=== PATIENT | female | born 1930 | race Caucasian/White ===

== ENCOUNTER 2017-04-12 10:20 | Emergency (ER) | payer OTHER ==
[~2017-04-12] VITALS: Ht 165.1 cm; Wt 66.9 kg
[2017-04-12 10:26] VITALS: BP 217/89; PULSE 75; RESP 18; TEMP 97.5
[2017-04-12] MEDS ORDERED: [UNRECOGNIZED DRUG - REMARK] (10:37)
[2017-04-12] MEDS ORDERED: ZITHTAB PO (10:59)
[2017-04-12] MEDS ORDERED: TRIAM.1%T TOPICAL (10:59)
--- NOTE | 2017-04-12 10:59 | PD ---
HPI Chief Complaint: Skin Problem Time Seen by Provider: 10:50 Travel History International Travel<30 days: No Contact w/Intl Traveler<30days: No Traveled to known affect area: No History of Present Illness HPI Patient presents with concerns of a sore throat and a rash about her neck for 2 weeks. States that her doctor gave her a steroid taper without resolution of her symptoms. Denies nausea vomiting diarrhea or fever. Denies any chest pain shortness of breath urinary or bowel symptoms. PFSH Past Medical History Dementia: Yes Hypertension: Yes ?: Not Social History Alcohol Use: No Tobacco Use: No Substance Use: No Allergies-Medications (Allergen,Severity, Reaction): Coded Allergies: Penicillins (Verified Allergy, Severe, Nausea/Vomiting, 04/12/17) Sulfa (Sulfonamide Antibiotics) (Verified Allergy, Severe, Nausea/Vomiting , 04/12/17) ciprofloxacin (Verified Allergy, Severe, Nausea/Vomiting, 04/12/17) Reported Meds & Prescriptions Reported Meds & Active Scripts Active Reported [?Antihypertensive] Review of Systems General / Constitutional: No: Fever Eyes: No: Visual changes HENT: Positive: Sore Throat, No: Headaches Cardiovascular: No: Chest Pain or Discomfort Respiratory: No: Shortness of Breath Gastrointestinal: No: Abdominal Pain Genitourinary: No: Dysuria Musculoskeletal: No: Pain Skin: Positive Rash Neurologic: No: Weakness Psychiatric: No: Depression Endocrine: No: Polydipsia Hematologic/Lymphatic: No: Easy Bruising Physical Exam Narrative GENERAL: Well-nourished, well-developed patient. SKIN: Focused skin assessment warm/dry. HEAD: Normocephalic. Throat: Erythematous mild adenopathy no exudate No rashes appreciated EYES: No scleral icterus. No injection or drainage. NECK: Supple, trachea midline. No JVD or lymphadenopathy. CARDIOVASCULAR: Regular rate and rhythm without murmurs, gallops, or rubs. RESPIRATORY: Breath sounds equal bilaterally. No accessory muscle use. GASTROINTESTINAL: Abdomen soft, non-tender, nondistended. MUSCULOSKELETAL: No cyanosis, or edema. BACK: Nontender without obvious deformity. No CVA tenderness. Data Data Last Documented VS Vital Signs Date Time Temp Pulse Resp B/P (MAP) Pulse Ox O2 Delivery O2 Flow Rate FiO2 04/12/17 10:26 97.5 75 18 217/89 (131) MDM Medical Decision Making Medical Screen Exam Complete: Yes Emergency Medical Condition: Yes Differential Diagnosis Pharyngitis, laryngitis, strep throat Narrative Course Assessment and plan discussed with patient and [id number] at bedside Diagnosis Primary Impression: Pharyngitis Qualified Codes: J02.9 - Acute pharyngitis, unspecified Additional Instructions: Rest fluids and Motrin, encourage frequent handwashing, follow-up with PCP, return to emergency room with any onset of new symptoms. Med/Other Pt SpecificInfo: Prescription(s) given Scripts Triamcinolone Topical (Triamcinolone Topical) 0.1 % Oint 1 APPLIC TOPICAL BID for Inflammation for 7 Days, GM 0 Refills Prov: Tramaine Ortiz MD 04/12/17 Azithromycin (Zithromax Z-Germán) 250 Mg Dspk 250 MG PO DIRECTED for Infection, #1 DSPK 0 Refills 500 MG (2 tabs) day 1, then 1 tab days 2-5. Prov: Tramaine Ortiz MD 04/12/17 Disposition: 01 DISCHARGE HOME Condition: Good Tramaine Ortiz MD Apr 12, 2017 10:59
== END 2017-04-12 11:18 | disposition home or self-care (01) ==
LOC: PHED 10:20
DX: J02.9 Acute pharyngitis, unspecified (principal); R21 Rash and other nonspecific skin eruption; I10 Essential (primary) hypertension; F03.90 Unspecified dementia, unspecified severity, without behavioral disturbance, psychotic disturbance, mood disturbance, and anxiety
CPT/HCPCS: 99284